=== PATIENT | female | born 1960 | race Caucasian/White ===

== ENCOUNTER → 2024-05-14 | Outpatient (CLI) | payer OTHER ==
--- NOTE | 2024-06-08 09:29 | US ---
Report Patient: Celeste Garcia Ordering Physician: Unknown, Unknown ID: [id number] Phone, Pager: Phone: N/A Pager: N/A : 1960 Age/Gender: 64Y, F Primary Location: N/A Procedure: US PELVIS COMPLETE W/ TRANSVAG Study Date: 05/14/2024 10:44:00 AM EXAMINATION TYPE: US pelvis complete with transvag DATE OF EXAM: 05/19/2024 COMPARISON: NONE CLINICAL HISTORY: 64 year-old female right pelvic pain, history of 4 C-sections, previous ablation in 2011. TECHNIQUE: Multiple transabdominal sonographic images of the pelvis are obtained. Transvaginal scanni ng was medically necessary to better assess the anatomy. FINDINGS: The uterus is anteverted measuring 10.8 x 2.5 x 4.6 cm. There is separation of the endometrial stripes due to fluid distending the fundal endometrial cavity by 5 mm. Stripe thickness approximately 3 to 4 mm. Fluid does not extend down into the uterine body o r lower uterine segment. Both ovaries are of scattered bowel gas shadowing and cannot be visualized. No evident adnexal abnormality or cul-de-sac free fluid. IMPRESSION: 1. Fluid distending the fundal uterine cavity. Consider hematometra trapped at the fundal uterine cav ity in a patient with history of previous endometrial ablation. 2. Unable to visualize either ovary due to bowel gas.
== END | disposition home or self-care (01) ==
LOC: RADUSWWP 13:47
PROVIDERS: ATTEND Family Medicine
DX: R10.2 Pelvic and perineal pain (principal); R14.3 Flatulence; N85.7 Hematometra
CPT/HCPCS: 76830; 76856